=== PATIENT | male | born 1975 | race Caucasian/White ===

== ENCOUNTER → 2016-07-30 | Outpatient (CLI) | payer OTHER ==
[~2016-07-30] MED LIST: CEFAZOLIN 1GM VI1 G1 IV; CLEOCIN HCL150 MG PO; GLIPIZIDE 5 MG T5 MG PO; GLUCOPHAGE500 MG PO; HYDROCODON-ACE1 EAC7 PO; IBUPROFEN 400400 M2 PO
== END ==
LOC: HYPER 07:22
DX: T81.89XA Other complications of procedures, not elsewhere classified, initial encounter (principal); S91.302D Unspecified open wound, left foot, subsequent encounter; E11.621 Type 2 diabetes mellitus with foot ulcer; L97.521 Non-pressure chronic ulcer of other part of left foot limited to breakdown of skin; E11.69 Type 2 diabetes mellitus with other specified complication; M86.8X7 Other osteomyelitis, ankle and foot; A49.9 Bacterial infection, unspecified; Z48.89 Encounter for other specified surgical aftercare; Z79.84 Long term (current) use of oral hypoglycemic drugs; Z87.891 Personal history of nicotine dependence; Y83.8 Other surgical procedures as the cause of abnormal reaction of the patient, or of later complication, without mention of misadventure at the time of the procedure

== ENCOUNTER → 2016-08-07 | Outpatient (CLI) | payer OTHER | LOC: HYPER 07:12 | DX: T81.89XD Other complications of procedures, not elsewhere classified, subsequent encounter (principal); E11.621 Type 2 diabetes mellitus with foot ulcer; L97.521 Non-pressure chronic ulcer of other part of left foot limited to breakdown of skin; E11.69 Type 2 diabetes mellitus with other specified complication; M86.8X8 Other osteomyelitis, other site; A49.9 Bacterial infection, unspecified; Z79.84 Long term (current) use of oral hypoglycemic drugs; Z48.89 Encounter for other specified surgical aftercare; Z87.891 Personal history of nicotine dependence; Y83.8 Other surgical procedures as the cause of abnormal reaction of the patient, or of later complication, without mention of misadventure at the time of the procedure ==

== ENCOUNTER → 2016-08-12 | Outpatient (CLI) | payer OTHER | LOC: HYPER 07:12 | DX: T81.89XD Other complications of procedures, not elsewhere classified, subsequent encounter (principal); E11.621 Type 2 diabetes mellitus with foot ulcer; L97.524 Non-pressure chronic ulcer of other part of left foot with necrosis of bone; E11.69 Type 2 diabetes mellitus with other specified complication; M86.9 Osteomyelitis, unspecified; Z79.84 Long term (current) use of oral hypoglycemic drugs; Z87.891 Personal history of nicotine dependence; Y83.8 Other surgical procedures as the cause of abnormal reaction of the patient, or of later complication, without mention of misadventure at the time of the procedure ==

== ENCOUNTER → 2016-08-21 | Outpatient (CLI) | payer OTHER | LOC: HYPER 07:13 | DX: T81.89XA Other complications of procedures, not elsewhere classified, initial encounter (principal); E11.621 Type 2 diabetes mellitus with foot ulcer; L97.521 Non-pressure chronic ulcer of other part of left foot limited to breakdown of skin; E11.69 Type 2 diabetes mellitus with other specified complication; M86.8X7 Other osteomyelitis, ankle and foot; A49.9 Bacterial infection, unspecified; Z48.89 Encounter for other specified surgical aftercare; Z79.84 Long term (current) use of oral hypoglycemic drugs; Z87.891 Personal history of nicotine dependence; Y83.8 Other surgical procedures as the cause of abnormal reaction of the patient, or of later complication, without mention of misadventure at the time of the procedure ==

== ENCOUNTER → 2016-08-29 | Outpatient (CLI) | payer OTHER | LOC: HYPER 08:15 | DX: T81.89XD Other complications of procedures, not elsewhere classified, subsequent encounter (principal); E11.621 Type 2 diabetes mellitus with foot ulcer; L97.524 Non-pressure chronic ulcer of other part of left foot with necrosis of bone; E11.69 Type 2 diabetes mellitus with other specified complication; M86.8X8 Other osteomyelitis, other site; A49.9 Bacterial infection, unspecified; Z48.89 Encounter for other specified surgical aftercare; Z79.84 Long term (current) use of oral hypoglycemic drugs; Z87.891 Personal history of nicotine dependence; Y83.8 Other surgical procedures as the cause of abnormal reaction of the patient, or of later complication, without mention of misadventure at the time of the procedure ==

== ENCOUNTER 2016-09-03 01:13 | Emergency (ER) | payer OTHER ==
[~2016-09-03] VITALS: Ht 188 cm; Wt 97.5 kg
[2016-09-03 01:34] LABS: HEMATOCRIT 37.5 % (42.0-52.0); HEMOGLOBIN 12.8 gm/dL (14.0-18.0); MCH 28.8 pg (26.0-34.0); MCHC 34.1 g/dL (28.0-37.0); MCV 84.3 fL (80.0-100.0); PLATELET COUNT 174 thou/uL (150-400); RBC 4.44 mil/uL (4.50-6.00); RDW 14.3 % (10.5-14.5); WBC 13.1 thou/uL (4.0-11.0)
[2016-09-03 01:35] LABS: MANUAL DIFF YES
[2016-09-03 01:40] LABS: CALCIUM 9.5 mg/dL (8.5-10.1); CREATININE 1.3 mg/dL (0.7-1.3); POTASSIUM 4.3 mmol/L (3.5-5.1)
[2016-09-03 01:45] LABS: ALBUMIN 3.1 g/dL (3.4-5.0); TOTAL BILIRUBIN 0.7 mg/dL (<0.1-1.0); TOTAL PROTEIN 7.7 g/dL (6.4-8.2)
[2016-09-03] MEDS ORDERED: ONDANSETRON HCL4 M2 PO (02:16)
[2016-09-03 02:31] LABS: URINE BLOOD 2+ (Negative); URINE GLUCOSE-RANDOM* 2+ (Negative); URINE KETONES 1+ (Negative); URINE LEUKOCYTES-REFLEX NEGATIVE (Negative); URINE PROTEIN (DIPSTICK) 1+ (Negative); URINE SPECIFIC GRAVITY >= 1.030 (1.003-1.035)
[2016-09-03 02:40] LABS: ICTOTEST (BILI CONFIRMATORY) Negative (Negative); URINE BILIRUBIN NEGATIVE (Negative); URINE COLOR DARK YELLOW
[2016-09-03 02:58] LABS: ABSOLUTE NEUTROPHILS 10.1 thou/uL (1.4-8.2); LARGE PLATELETS RARE; TOTAL CELL COUNT 100
[2016-09-03 03:22] LABS: CRYSTALS None Seen /LPF (None Seen); HYALINE CASTS 0-3 Few /LPF (None Seen); SQUAMOUS 0-3 Few /LPF (0-3); URINE RBC 3-10 Few /HPF (0-2); URINE WBC-REFLEX 0-5 Rare /HPF (0-5)
== END 2016-09-03 02:51 | disposition home or self-care (01) ==
LOC: ER 01:13
PROVIDERS: Emergency Medicine
DX: E11.65 Type 2 diabetes mellitus with hyperglycemia (principal); R11.10 Vomiting, unspecified

== ENCOUNTER 2016-09-04 07:02 | Inpatient (IN) | payer OTHER ==
[~2016-09-04] VITALS: Ht 188 cm; Wt 99.8 kg
--- NOTE | ~2016-09-04 | HC ---
[facility] [place] [address] CONSULTATION Name: KALYAN URBINA Room #: 406-P [facility] IN M.R.#: [id number] Admission: 09/04/16 Attend Phys: Suleman Avelar MD Discharge: Date of : 79 Report #: [id number] THIS REPORT FOR: //name// CC: Suleman Cabezas DATE OF SERVICE: 09/05/2016 INFECTIOUS DISEASE CONSULTATION ATTENDING PHYSICIAN: Dr. Suleman Avelar. REASON FOR CONSULTATION: Deep infection involving the left foot. HISTORY OF PRESENT ILLNESS: Chart reviewed, the patient examined. This is a 40-year-old white male with diabetes mellitus who has had ongoing issues with distal lower extremity ulcers, some of which have been complicated by infection in June2016. Did undergo amputation of the left great toe as well as distal portion of the metatarsal. Operative cultures were known to have likely synergistic infection with group B strep as well Staph aureus. He did receive extended course of treatments, he believes 6 weeks. He has had ongoing issues with chronic wounds. He earlier this week developed some nausea with emesis and is feeling poorly, had some dyspnea, was evaluated at least on a couple of occasions. Ultimately was admitted with his evaluation following his wound care clinic visit. [place] he needed additional operative debridement, possible more extensive osteoectomies. He has had fevers. His blood sugars have been markedly elevated, currently he is not encephalopathic. He has been started on broad-spectrum therapy with vancomycin, piperacillin, tazobactam. He is scheduled to undergo surgery in the a.m. on 09/06/2016. ALLERGIES: None known. MEDICATIONS: Include insulin detemir, Lispro, morphine sulfate, vancomycin, Zosyn. PAST MEDICAL HISTORY: Diabetes mellitus, primary complication being the left great toe amputation. SOCIAL HISTORY: Nonsmoker, no ethanol. FAMILY HISTORY: Noncontributory. REVIEW OF SYSTEMS: As above. PHYSICAL EXAMINATION: [address] [address] CONSULTATION Name: KALYAN URBINA Floridalma Room #: 406-[facility] IN [facility]#: [id number] Admission: 09/04/16 Attend Phys: Suleman Avelar MD Discharge: Date of : 79 Report #: [id number] GENERAL: Appears fairly well nourished. He is alert, cooperative, in mild distress. VITAL SIGNS: Temperature max was 102.8, more recently 98.5; pulse 93, respirations 18, blood pressure 111/65. SKIN: Warm, dry, no rashes. HEENT: Otherwise, unremarkable. NECK: Supple. LUNGS: Generally clear to auscultation. HEART: Regular. I do not appreciate any murmur. ABDOMEN: Soft, nontender, nondistended. There is a compression dressing over his left foot. GENITOURINARY: Deferred. RECTAL: Deferred. LABORATORY DATA: Electrolytes: Sodium 131, potassium 4.3, chloride 96, bicarbonate is 24, anion gap of 11, BUN and creatinine 20 and 1.3. Glucose is 343. LFTs unremarkable. Albumin 3.1, total protein 7.7. Estimated GFR 62, lipase 100. CBC with white count of 13.1, H and H 12.8 and 37.5, platelets of 174. Urinalysis 1+ protein and 0-5 white cells. Lactic acid 1.0. Sed rate of 73. Prealbumin of 12.4. Plain film of the foot, diffuse swelling first metatarsal raising question of osteomyelitis. Hemoglobin A1c 6.4. CRP elevated at 184.83. MRI of the foot showed postoperative changes in amputation of the first toe and distal half of the first metatarsal, prominent soft tissue wound ulcer, plantar, medial, forefoot amputation site extending along the plantar mid foot below the base, acute appearing fracture of the second metatarsal with surrounding heterogenous marrow signal alterations, has question of pathological fracture related osteomyelitis. ASSESSMENT AND PLAN: Deep foot infection is yet to be defined. We will continue empiric broad spectrum therapy, he likely had a synergistic infection previous with Staph aureus group B strep. We will continue wound care as prescribed, offloading, and await findings at surgery. <ELECTRONICALLY SIGNED> By: Sammy Mireles MD 09/06/16 0512 [id number] Sammy Mireles MD /nt
--- NOTE | ~2016-09-04 | HC ---
[facility] [place] [address] CONSULTATION Name: KALYAN URBINA Room #: 406-P [facility] IN M.R.#: [id number] Admission: 09/04/16 Attend Phys: Suleman Avelar MD Discharge: Date of : 79 Report #: [id number] THIS REPORT FOR: //name// CC: Suleman Cabezas DATE OF SERVICE: 09/04/2016 PRIMARY CARE PHYSICIAN: Placido Morales M.D. CHIEF COMPLAINT: Diabetic foot ulcer. HISTORY OF PRESENT ILLNESS: This is a 40-year-old white male with a new onset of type 2 diabetes, who has underwent approximately 3 months ago a left first ray amputation, underwent total of 30 hyperbaric oxygen treatments, has been followed closely by myself, Dr. Andrew Armando and Dr. Andrew Chaudhary over the past several months. Last week actually I saw the patient's foot, wound was markedly contracted, totally granulated. There was no exposed bone. The patient states he felt very well. The patient states, however, this past week approximately 2 days ago, he started feeling fevers, chills, and generalized malaise, went in to the Emergency Department and was told he was dehydrated, given IV fluid and doses of Zofran. The patient states he went home, slept most of the next day, and was still having fevers and chills. The patient states he awoke this morning still feeling measurable and kept his appointment today, and shows up today with a cellulitic left foot with a severe foul smelly odor and a temperature of 102. The patient admission for IV antibiotics, further evaluation by Dr. Andrew Armando. MRI be performed to evaluate for an abscess, and possible further surgical intervention versus further amputation of his left foot. PAST MEDICAL HISTORY: Type 2 diabetes which was fairly controlled recently up until this past week, recent left first ray amputation secondary to diabetic foot ulcer and osteomyelitis. CURRENT MEDICATIONS: Ibuprofen, hydrocodone, metformin, glipizide, and Keflex. DRUG ALLERGIES: None. SOCIAL HISTORY: The patient does not smoke. FAMILY HISTORY: Not pertinent to current diagnosis. REVIEW OF SYSTEMS: CONSTITUTIONAL: The patient complains fevers and chills over the past 2-3 days with associated sweats. [address] [address] CONSULTATION Name: KALYAN URBINA Floridalma Room #: 406-P [facility] IN M.R.#: [id number] Admission: 09/04/16 Attend Phys: Suleman Avelar MD Discharge: Date of : 79 Report #: [id number] EYES: No complaints. ENT: No complaints. CARDIAC: The patient denies chest pain, palpitations. The patient has symptoms of slight edema in his left lower extremity. RESPIRATORY: The patient denies shortness breath, cough, wheezes. GASTROINTESTINAL: The patient denies nausea, vomiting, abdominal pain. GENITOURINARY: The patient denies urgency or frequency. MUSCULOSKELETAL: The patient has pain in his left foot. SKIN: Left foot is cellulitic. PHYSICAL EXAMINATION: VITAL SIGNS: Temperature 102, rest of the vitals are stable. GENERAL: This is alert and oriented x 3, ill appearing white male who is having chills at the time of my exam. HEENT: Normocephalic, atraumatic. Mucous membranes are dry. Pupils are round. Sclerae white. LUNGS: Clear. HEART: Regular. ABDOMEN: Soft, nontender. EXTREMITIES: The patient moves all extremities without difficulty. Evaluation of left lower extremity reveals a surgical wound which probes to bone. It probes in deeper to the mid foot approximately 4 cm with foul smelling brownish drainage. The foot itself is warm to touch and swollen, but appears stopped just at the mid foot, there does not appear to be any extension above into the ankle and lower extremity. The rest of the toes are mildly erythematous, but not necessarily cellulitic. The drainage itself is moderate at least. NEUROLOGIC: Cranial nerves 2-12 grossly intact. Motor and sensory grossly intact. WOUND CARE COURSE: I spoke with the patient and he is agreeable with admission. I spoke to the hospitalist, who admitted the patient. I have written basic wound care orders for Dakin's quarter strength moist gauze be packed within the wound twice daily with ABD and Kerlix. I have already consulted Dr. Andrew Armando and Dr. Andrew Chaudhary which I have notified both of them about the admission, who ordered an MRI of this patient to evaluate for underlying abscess and/or further extension of the osteomyelitis. We also ordered basic blood work including blood cultures x 2 and a wound culture. I will continue to follow the patient while he is in the hospital. IMPRESSION: 1. Diabetic foot ulcer, diabetic foot wound with cellulitis. 2. Status post left first ray amputation secondary to previous left great toe ulceration and underlying osteomyelitis. 3. Diabetes mellitus, type 2. 4. Generalized debility. [facility] [address] [place] [address] CONSULTATION Name: KALYAN URBINA Room #: 406-P [facility] IN M.R.#: [id number] Admission: 09/04/16 Attend Phys: Suleman Avelar MD Discharge: Date of : 79 Report #: [id number] ASSESSMENT AND PLAN: I described in length as above. The patient will be taken directly from my clinic to admissions where he will be direct admit and we will follow him for wound care. <ELECTRONICALLY SIGNED> By: Gerardo Cabezas MD 09/10/16 0825 [id number] Gerardo Cabezas MD /nt
--- NOTE | ~2016-09-04 | S ---
[facility] [place] [address] SURGICAL PATH RPT PROCEDURE Name: KALYAN URBINA Room #: 406-P [facility] IN M.R.#: [id number] Admission: 09/04/16 Date of : 79 Discharge: 09/10/16 Report #: [id number] Path Case #: [id number] PATHOLOGY REPORT COLLECTION DATE: 09/06/2016 RECEIVED DATE: 09/08/2016 SUBMITTING PHYS: Dr. Andrew Armando OTHER PHYS: Dr. Suleman Morales SPECIMEN(S) RECEIVED: A.Left forefoot - Lisfranc amputation * * * * * * * * * * * * FINAL DIAGNOSIS: Left forefoot, Lisfranc amputation: - Specimen received in multiple fragments, showing multiple foci of marked acute inflammation with abscess formation as well as acute osteomyelitis and bone destruction. - Surgical margins showing viable and unremarkable skin. (IUV:csd; d/t: 09/12/2016) PATHOLOGIST: Yuli Cabrera M.D. REPORT ELECTRONICALLY SIGNED BY: Yuli Cabrera M.D. DATE/TIME: 09/12/2016 16:33 * * * * * * * * * * * * GROSS PATHOLOGY: The specimen is received in formalin, labeled "Urbina, left forefoot-Lisfranc amputation", and consists of portions of a fragmented left forefoot amputated across a transmetatarsal location with attached second, third, fourth and fifth toes. The great toe is absent. This portion of the foot measures 13 10 4.5 cm. Skin overlying the foot is pale wei with a concave ulcerated area involving the medial aspect of the foot measuring about 2.5 1.5 cm located 0.5 cm from the dorsal skin resection margin and about 0.5 cm from the plantar resection margin. The ulcer bed is cavitated and extends into the underlying soft tissue and a portion of first metatarsal bone is exposed within the ulcer bed. The deep soft tissues in this region have hemorrhagic areas adjacent to the attached fragment of first metatarsal bone. The soft tissue and bone adjacent to the plantar surface are marked with black dye and the dorsal skin margin with blue dye. Some hemorrhagic areas extend to soft tissue margins on the dorsal aspect of this portion of the foot. Two other detached fragments of skin with underlying subcutis [address] [address] SURGICAL PATH RPT PROCEDURE Name: KALYAN URBINA Floridalma Room #: 406-P [facility] IN M.R.#: [id number] Admission: 09/04/16 Date of : 79 Discharge: 09/10/16 Report #: [id number] Path Case #: [id number] together in aggregate measure 8.5 5 1.5 cm. Skin surfaces are without significant abnormalities and subcutaneous tissue of the smaller skin segment has some scattered hemorrhagic areas. Several other detached disrupted portions of bone including articular surfaces together in aggregate measure 5.5 4 2 cm. [employer] sections are submitted following decalcification of bone as follows: Perpendicular section dorsal skin resection margin and adjacent ulcer border A1, plantar skin resection margin and adjacent ulcer A2, hemorrhagic area involving plantar soft tissue adjacent to ulcerated region A3, fragment of metatarsal bone exposed within ulcer bed A4, en face sections of other portions of dorsal and plantar skin and soft tissue margins A5 and A 6 respectively and separate detached skin fragment with hemorrhagic areas A7. (CWM; 09/11/2016) CLINICAL HISTORY: Pre-op diagnosis: Diabetes, osteomyelitis with abscess left foot Postop diagnosis: Same INITIAL CPT CODE(S): A; 24079, 75311 Professional services performed by [facility] at [facility] [address], [place] [address] Technical services performed by [facility] at [address] [place] [address], [facility] [address] [address]. [facility] [address] [place] [address] PHONE: [phone] DIRECTOR: Federico Morales M.D. * * * END OF REPORT * * *
[~2016-09-04 07:02] MED LIST changes: +ONDANSETRON HCL4 M2 PO
[2016-09-04 19:00] VITALS: BP 121/64
[2016-09-04 20:07] LABS: HEMATOCRIT 30.4 % (42.0-52.0); MCH 29.2 pg (26.0-34.0); MCHC 34.5 g/dL (28.0-37.0); MCV 84.5 fL (80.0-100.0); PLATELET COUNT 159 thou/uL (150-400); RDW 14.3 % (10.5-14.5); WBC 13.9 thou/uL (4.0-11.0)
[2016-09-04 20:26] LABS: HEMOGLOBIN 10.5 gm/dL (14.0-18.0)
[2016-09-04 20:27] LABS: MANUAL DIFF YES
[2016-09-04 20:30] LABS: ALBUMIN 2.8 g/dL (3.4-5.0); CALCIUM 8.5 mg/dL (8.5-10.1); CREATININE 1.3 mg/dL (0.7-1.3); POTASSIUM 4.2 mmol/L (3.5-5.1); TOTAL PROTEIN 6.6 g/dL (6.4-8.2)
[2016-09-04 20:43] LABS: PREALBUMIN 12.4 mg/dL (18.0-35.7)
[2016-09-04 21:09] LABS: ABSOLUTE NEUTROPHILS 9.9 thou/uL (1.4-8.2); TOTAL CELL COUNT 100
[2016-09-05] VITALS: BP 106/65
[2016-09-05 04:08] LABS: GLYCOHEMOGLOBIN (HGB A1C) 6.4 % (4.8-5.6)
[2016-09-05 05:25] VITALS: BP 128/75
[2016-09-05 07:30] VITALS: BP 111/65
[2016-09-05 15:52] VITALS: BP 107/60
[2016-09-05 16:34] VITALS: BP 107/60
[2016-09-05 20:00] VITALS: BP 122/78
[2016-09-06 04:00] VITALS: BP 126/77
[2016-09-06 08:41] VITALS: BP 118/75
[2016-09-06 12:45] VITALS: BP 133/90
[2016-09-06 13:15] VITALS: BP 135/88
[2016-09-06 13:45] VITALS: BP 130/78
[2016-09-06 20:18] LABS: URINE BILIRUBIN NEGATIVE (Negative); URINE BLOOD NEGATIVE (Negative); URINE COLOR YELLOW; URINE GLUCOSE-RANDOM* TRACE (Negative); URINE KETONES TRACE (Negative); URINE LEUKOCYTES-REFLEX NEGATIVE (Negative); URINE PROTEIN (DIPSTICK) 1+ (Negative); URINE SPECIFIC GRAVITY >= 1.030 (1.003-1.035)
[2016-09-06 20:25] LABS: CASTS None Seen /LPF (None Seen); CRYSTALS None Seen /LPF (None Seen); SQUAMOUS None Seen /LPF (0-3); URINE RBC 0-2 Rare /HPF (0-2); URINE WBC-REFLEX 0-5 Rare /HPF (0-5)
[2016-09-06 20:33] VITALS: BP 110/66
[2016-09-07 03:50] VITALS: BP 114/60
[2016-09-07 08:00] VITALS: BP 121/77
[2016-09-07 11:19] LABS: HEMATOCRIT 26.6 % (42.0-52.0); HEMOGLOBIN 9.1 gm/dL (14.0-18.0); MCHC 34.1 g/dL (28.0-37.0); MCV 85.1 fL (80.0-100.0); RBC 3.12 mil/uL (4.50-6.00); RDW 14.5 % (10.5-14.5); WBC 11.4 thou/uL (4.0-11.0)
[2016-09-07 11:28] LABS: CALCIUM 7.8 mg/dL (8.5-10.1); POTASSIUM 4.2 mmol/L (3.5-5.1)
[2016-09-07 16:09] VITALS: BP 108/72
[2016-09-07 16:14] VITALS: BP 108/72
[2016-09-07 20:00] VITALS: BP 110/78
[2016-09-08 04:00] VITALS: BP 116/76
[2016-09-08 07:19] VITALS: BP 117/74
[2016-09-08] MEDS ORDERED: LANTUS100 UNIT/M SUBQ (15:12)
[2016-09-08] MEDS ORDERED: HUMALOG100 UNIT/1 SUBQ (15:14)
[2016-09-08] MEDS ORDERED: VANCO 1 GR1 GM/250 M IVPB (15:34)
[2016-09-08 17:22] VITALS: BP 127/73
[2016-09-08 19:59] VITALS: BP 110/70
[2016-09-09 04:37] VITALS: BP 111/76
[2016-09-09 07:50] VITALS: BP 116/71
[2016-09-09 15:35] VITALS: BP 114/68
[2016-09-09 19:10] VITALS: BP 140/84
[2016-09-09 23:45] VITALS: BP 114/63
[2016-09-10 04:34] VITALS: BP 128/76
[2016-09-10 08:00] VITALS: BP 123/84
[2016-09-10] MEDS ORDERED: FLAGYL500 MG IV (11:37)
[2016-09-10] MEDS ORDERED: FLAGYL500 MG IVPB (11:38)
[2016-09-10] MEDS ORDERED: METRONIDAZOLE500 M5 IV (11:53)
== END 2016-09-10 13:42 | DRG 854 ==
LOC: HYPER → 4N 17:06
PROVIDERS: Emergency Medicine; Internal Medicine
PROC: 0Y6N0ZB Detachment at Left Foot, Partial 2nd Ray, Open Approach (ICD-10-PCS; principal; 2016-09-06)
PROC: 0Y6N0ZD Detachment at Left Foot, Partial 4th Ray, Open Approach (ICD-10-PCS; principal; 2016-09-06)
PROC: 0Y6N0ZC Detachment at Left Foot, Partial 3rd Ray, Open Approach (ICD-10-PCS; principal; 2016-09-06)
PROC: 0Y6N0Z9 Detachment at Left Foot, Partial 1st Ray, Open Approach (ICD-10-PCS; principal; 2016-09-06)
PROC: 02HV33Z Insertion of Infusion Device into Superior Vena Cava, Percutaneous Approach (ICD-10-PCS; 2016-09-08)
PROC: B548ZZA Ultrasonography of Superior Vena Cava, Guidance (ICD-10-PCS; 2016-09-08)
DX: A41.9 Sepsis, unspecified organism (principal); E44.0 Moderate protein-calorie malnutrition; L03.116 Cellulitis of left lower limb; M86.172 Other acute osteomyelitis, left ankle and foot; E87.1 Hypo-osmolality and hyponatremia; S92.322B Displaced fracture of second metatarsal bone, left foot, initial encounter for open fracture; L02.612 Cutaneous abscess of left foot; M87.9 Osteonecrosis, unspecified; N17.9 Acute kidney failure, unspecified; E11.621 Type 2 diabetes mellitus with foot ulcer; Z68.28 Body mass index [BMI] 28.0-28.9, adult; L97.524 Non-pressure chronic ulcer of other part of left foot with necrosis of bone; E11.69 Type 2 diabetes mellitus with other specified complication; M14.672 Charcot's joint, left ankle and foot; E11.65 Type 2 diabetes mellitus with hyperglycemia; Z87.891 Personal history of nicotine dependence; Z79.899 Other long term (current) drug therapy
CPT/HCPCS: 10790; 27000; 50101; 50386; 50951; 51741; 53078; 56524; 56525; 57091; 62110; 62900; 70005

== ENCOUNTER → 2017-02-27 | Outpatient (CLI) | payer OTHER ==
[~2017-02-27] MED LIST changes: +FLAGYL500 MG IV; +FLAGYL500 MG IVPB; +HUMALOG100 UNIT/1 SUBQ; +LANTUS100 UNIT/M SUBQ; +METRONIDAZOLE500 M5 IV; +VANCO 1 GR1 GM/250 M IVPB
== END ==
LOC: HYPER 08:22
DX: E11.621 Type 2 diabetes mellitus with foot ulcer (principal); L97.521 Non-pressure chronic ulcer of other part of left foot limited to breakdown of skin; Z79.84 Long term (current) use of oral hypoglycemic drugs; Z87.891 Personal history of nicotine dependence

== ENCOUNTER → 2017-03-16 | Outpatient (CLI) | payer OTHER | LOC: HYPER 07:38 | DX: E11.621 Type 2 diabetes mellitus with foot ulcer (principal); L97.521 Non-pressure chronic ulcer of other part of left foot limited to breakdown of skin; Z87.891 Personal history of nicotine dependence ==

== ENCOUNTER → 2017-03-30 | Outpatient (CLI) | payer OTHER | LOC: HYPER 07:17 | DX: E11.621 Type 2 diabetes mellitus with foot ulcer (principal); L97.521 Non-pressure chronic ulcer of other part of left foot limited to breakdown of skin; Z79.84 Long term (current) use of oral hypoglycemic drugs; Z89.432 Acquired absence of left foot; Z87.891 Personal history of nicotine dependence ==

== ENCOUNTER → 2017-05-05 | Outpatient (CLI) | payer OTHER | LOC: HYPER 07:00 | DX: E11.621 Type 2 diabetes mellitus with foot ulcer (principal); L97.521 Non-pressure chronic ulcer of other part of left foot limited to breakdown of skin; Z89.422 Acquired absence of other left toe(s); Z87.891 Personal history of nicotine dependence; Z79.84 Long term (current) use of oral hypoglycemic drugs ==

== ENCOUNTER → 2017-05-18 | Outpatient (CLI) | payer OTHER | LOC: HYPER 07:08 | DX: E11.621 Type 2 diabetes mellitus with foot ulcer (principal); L97.522 Non-pressure chronic ulcer of other part of left foot with fat layer exposed; Z79.84 Long term (current) use of oral hypoglycemic drugs; Z89.432 Acquired absence of left foot; Z87.891 Personal history of nicotine dependence ==

== ENCOUNTER → 2017-06-01 | Outpatient (CLI) | payer OTHER | LOC: HYPER 06:48 | DX: E11.621 Type 2 diabetes mellitus with foot ulcer (principal); L97.522 Non-pressure chronic ulcer of other part of left foot with fat layer exposed; Z79.84 Long term (current) use of oral hypoglycemic drugs; Z89.432 Acquired absence of left foot; Z87.891 Personal history of nicotine dependence ==

== ENCOUNTER → 2017-06-30 | Outpatient (CLI) | payer OTHER | LOC: HYPER 07:08 | DX: E11.621 Type 2 diabetes mellitus with foot ulcer (principal); L97.421 Non-pressure chronic ulcer of left heel and midfoot limited to breakdown of skin; L97.522 Non-pressure chronic ulcer of other part of left foot with fat layer exposed; L89.623 Pressure ulcer of left heel, stage 3; Z79.84 Long term (current) use of oral hypoglycemic drugs; Z89.432 Acquired absence of left foot; Z87.891 Personal history of nicotine dependence ==

== ENCOUNTER → 2017-07-28 | Outpatient (CLI) | payer OTHER | LOC: HYPER 07:05 | DX: E11.621 Type 2 diabetes mellitus with foot ulcer (principal); L97.521 Non-pressure chronic ulcer of other part of left foot limited to breakdown of skin; L97.421 Non-pressure chronic ulcer of left heel and midfoot limited to breakdown of skin; L89.623 Pressure ulcer of left heel, stage 3; E11.622 Type 2 diabetes mellitus with other skin ulcer; L97.522 Non-pressure chronic ulcer of other part of left foot with fat layer exposed; Z79.84 Long term (current) use of oral hypoglycemic drugs; Z87.891 Personal history of nicotine dependence ==

== ENCOUNTER → 2017-08-03 | Outpatient (CLI) | payer OTHER | LOC: HYPER 06:56 | DX: E11.621 Type 2 diabetes mellitus with foot ulcer (principal); L97.522 Non-pressure chronic ulcer of other part of left foot with fat layer exposed; L97.422 Non-pressure chronic ulcer of left heel and midfoot with fat layer exposed; L89.623 Pressure ulcer of left heel, stage 3; Z79.84 Long term (current) use of oral hypoglycemic drugs; Z89.422 Acquired absence of other left toe(s); Z87.891 Personal history of nicotine dependence ==

== ENCOUNTER → 2017-08-11 | Outpatient (CLI) | payer OTHER | LOC: HYPER 06:55 | DX: E11.621 Type 2 diabetes mellitus with foot ulcer (principal); L97.522 Non-pressure chronic ulcer of other part of left foot with fat layer exposed; L89.623 Pressure ulcer of left heel, stage 3; L97.421 Non-pressure chronic ulcer of left heel and midfoot limited to breakdown of skin; Z79.84 Long term (current) use of oral hypoglycemic drugs; Z87.891 Personal history of nicotine dependence ==

== ENCOUNTER → 2017-08-31 | Outpatient (CLI) | payer OTHER | LOC: HYPER 06:51 | DX: E11.621 Type 2 diabetes mellitus with foot ulcer (principal); L97.522 Non-pressure chronic ulcer of other part of left foot with fat layer exposed; L89.613 Pressure ulcer of right heel, stage 3; L89.620 Pressure ulcer of left heel, unstageable; L97.421 Non-pressure chronic ulcer of left heel and midfoot limited to breakdown of skin; L84 Corns and callosities; Z87.891 Personal history of nicotine dependence; Z79.84 Long term (current) use of oral hypoglycemic drugs ==

== ENCOUNTER → 2017-09-14 | Outpatient (CLI) | payer OTHER | LOC: HYPER 06:45 | DX: E11.621 Type 2 diabetes mellitus with foot ulcer (principal); L97.522 Non-pressure chronic ulcer of other part of left foot with fat layer exposed; L89.623 Pressure ulcer of left heel, stage 3; L97.421 Non-pressure chronic ulcer of left heel and midfoot limited to breakdown of skin; L84 Corns and callosities; Z87.891 Personal history of nicotine dependence; Z79.84 Long term (current) use of oral hypoglycemic drugs ==

== ENCOUNTER → 2017-10-16 | Outpatient (CLI) | payer OTHER | LOC: HYPER 08:03 | DX: E11.621 Type 2 diabetes mellitus with foot ulcer (principal); L97.522 Non-pressure chronic ulcer of other part of left foot with fat layer exposed; L89.623 Pressure ulcer of left heel, stage 3; L97.421 Non-pressure chronic ulcer of left heel and midfoot limited to breakdown of skin; L84 Corns and callosities; Z87.891 Personal history of nicotine dependence; Z89.412 Acquired absence of left great toe; Z89.422 Acquired absence of other left toe(s); Z79.84 Long term (current) use of oral hypoglycemic drugs ==

== ENCOUNTER → 2017-11-03 | Outpatient (CLI) | payer OTHER | LOC: HYPER 06:52 | DX: E11.621 Type 2 diabetes mellitus with foot ulcer (principal); L97.522 Non-pressure chronic ulcer of other part of left foot with fat layer exposed; L89.623 Pressure ulcer of left heel, stage 3; L97.421 Non-pressure chronic ulcer of left heel and midfoot limited to breakdown of skin; L84 Corns and callosities; Z89.422 Acquired absence of other left toe(s); Z79.84 Long term (current) use of oral hypoglycemic drugs; Z87.891 Personal history of nicotine dependence ==

== ENCOUNTER → 2017-11-16 | Outpatient (CLI) | payer OTHER | LOC: HYPER 07:02 | DX: E11.621 Type 2 diabetes mellitus with foot ulcer (principal); L97.522 Non-pressure chronic ulcer of other part of left foot with fat layer exposed; L89.623 Pressure ulcer of left heel, stage 3; L97.421 Non-pressure chronic ulcer of left heel and midfoot limited to breakdown of skin; Z79.84 Long term (current) use of oral hypoglycemic drugs; Z89.422 Acquired absence of other left toe(s); Z89.412 Acquired absence of left great toe; Z87.891 Personal history of nicotine dependence ==

== ENCOUNTER → 2018-02-01 | Outpatient (CLI) | payer OTHER | LOC: HYPER 01-25 07:13 | DX: E11.621 Type 2 diabetes mellitus with foot ulcer (principal); L97.522 Non-pressure chronic ulcer of other part of left foot with fat layer exposed; L89.623 Pressure ulcer of left heel, stage 3; S90.821D Blister (nonthermal), right foot, subsequent encounter; L84 Corns and callosities; Z89.412 Acquired absence of left great toe; Z89.422 Acquired absence of other left toe(s); X58.XXXD Exposure to other specified factors, subsequent encounter; Z87.891 Personal history of nicotine dependence ==

== ENCOUNTER → 2018-02-19 | Outpatient (CLI) | payer OTHER | LOC: HYPER 07:55 | DX: E11.621 Type 2 diabetes mellitus with foot ulcer (principal); L97.522 Non-pressure chronic ulcer of other part of left foot with fat layer exposed; S90.821D Blister (nonthermal), right foot, subsequent encounter; Z89.412 Acquired absence of left great toe; Z89.422 Acquired absence of other left toe(s); Z79.84 Long term (current) use of oral hypoglycemic drugs; Z87.891 Personal history of nicotine dependence; X58.XXXD Exposure to other specified factors, subsequent encounter ==

== ENCOUNTER → 2018-03-22 | Outpatient (CLI) | payer OTHER | LOC: HYPER 07:11 | DX: E11.621 Type 2 diabetes mellitus with foot ulcer (principal); L97.522 Non-pressure chronic ulcer of other part of left foot with fat layer exposed; L84 Corns and callosities; Z89.412 Acquired absence of left great toe; Z89.422 Acquired absence of other left toe(s); Z79.84 Long term (current) use of oral hypoglycemic drugs; Z87.891 Personal history of nicotine dependence ==

== ENCOUNTER → 2018-04-13 | Outpatient (CLI) | payer OTHER | LOC: MRI 04-02 16:16 → RAD 10:00 → MRI 04-16 16:10 | DX: E11.621 Type 2 diabetes mellitus with foot ulcer (principal); L97.522 Non-pressure chronic ulcer of other part of left foot with fat layer exposed ==

== ENCOUNTER → 2018-04-13 | Outpatient (CLI) | payer OTHER | LOC: HYPER 06:51 | DX: E11.621 Type 2 diabetes mellitus with foot ulcer (principal); L97.522 Non-pressure chronic ulcer of other part of left foot with fat layer exposed; L84 Corns and callosities; Z89.412 Acquired absence of left great toe; Z89.422 Acquired absence of other left toe(s); Z79.84 Long term (current) use of oral hypoglycemic drugs; Z87.891 Personal history of nicotine dependence ==

== ENCOUNTER → 2018-05-06 | Outpatient (CLI) | payer OTHER | LOC: HYPER 05:29 | DX: E11.621 Type 2 diabetes mellitus with foot ulcer (principal); L97.522 Non-pressure chronic ulcer of other part of left foot with fat layer exposed; L84 Corns and callosities; Z89.412 Acquired absence of left great toe; Z89.422 Acquired absence of other left toe(s); Z79.84 Long term (current) use of oral hypoglycemic drugs; Z87.891 Personal history of nicotine dependence ==

== ENCOUNTER → 2018-05-14 | Outpatient (CLI) | payer OTHER | LOC: MRI 09:24 | DX: E11.621 Type 2 diabetes mellitus with foot ulcer (principal); L97.522 Non-pressure chronic ulcer of other part of left foot with fat layer exposed; R60.0 Localized edema ==

== ENCOUNTER → 2018-05-20 | Outpatient (CLI) | payer OTHER | LOC: HYPER 07:09 | DX: E11.621 Type 2 diabetes mellitus with foot ulcer (principal); L97.522 Non-pressure chronic ulcer of other part of left foot with fat layer exposed; L84 Corns and callosities; Z89.412 Acquired absence of left great toe; Z89.422 Acquired absence of other left toe(s); Z79.84 Long term (current) use of oral hypoglycemic drugs; Z87.891 Personal history of nicotine dependence ==

== ENCOUNTER → 2018-06-17 | Outpatient (CLI) | payer OTHER | LOC: HYPER 06-16 14:40 | DX: E11.621 Type 2 diabetes mellitus with foot ulcer (principal); L97.522 Non-pressure chronic ulcer of other part of left foot with fat layer exposed; L84 Corns and callosities; F17.200 Nicotine dependence, unspecified, uncomplicated; Z89.412 Acquired absence of left great toe; Z89.422 Acquired absence of other left toe(s); Z79.84 Long term (current) use of oral hypoglycemic drugs ==

== ENCOUNTER → 2018-07-15 | Outpatient (CLI) | payer OTHER | LOC: HYPER 06:56 | DX: E11.621 Type 2 diabetes mellitus with foot ulcer (principal); L97.522 Non-pressure chronic ulcer of other part of left foot with fat layer exposed; L84 Corns and callosities; Z89.412 Acquired absence of left great toe; Z89.422 Acquired absence of other left toe(s); Z79.84 Long term (current) use of oral hypoglycemic drugs; Z87.891 Personal history of nicotine dependence ==

== ENCOUNTER → 2018-07-29 | Outpatient (CLI) | payer OTHER | LOC: HYPER 06:55 | DX: E11.621 Type 2 diabetes mellitus with foot ulcer (principal); L97.522 Non-pressure chronic ulcer of other part of left foot with fat layer exposed; L84 Corns and callosities; Z89.412 Acquired absence of left great toe; Z89.422 Acquired absence of other left toe(s); Z79.84 Long term (current) use of oral hypoglycemic drugs; Z87.891 Personal history of nicotine dependence ==

== ENCOUNTER → 2018-08-12 | Outpatient (CLI) | payer OTHER | LOC: HYPER 06:39 | DX: E11.621 Type 2 diabetes mellitus with foot ulcer (principal); L97.522 Non-pressure chronic ulcer of other part of left foot with fat layer exposed; L84 Corns and callosities; Z89.522 Acquired absence of left knee; Z89.422 Acquired absence of other left toe(s); Z79.84 Long term (current) use of oral hypoglycemic drugs; Z87.891 Personal history of nicotine dependence ==

== ENCOUNTER → 2018-08-19 | Outpatient (CLI) | payer OTHER | LOC: HYPER 06:53 | DX: E11.621 Type 2 diabetes mellitus with foot ulcer (principal); L97.522 Non-pressure chronic ulcer of other part of left foot with fat layer exposed; L84 Corns and callosities; Z89.412 Acquired absence of left great toe; Z89.422 Acquired absence of other left toe(s); Z79.84 Long term (current) use of oral hypoglycemic drugs; Z87.891 Personal history of nicotine dependence ==

== ENCOUNTER → 2018-08-26 | Outpatient (CLI) | payer OTHER | LOC: HYPER 07:09 | DX: E11.621 Type 2 diabetes mellitus with foot ulcer (principal); L97.522 Non-pressure chronic ulcer of other part of left foot with fat layer exposed; L84 Corns and callosities; Z89.412 Acquired absence of left great toe; Z89.422 Acquired absence of other left toe(s); Z79.84 Long term (current) use of oral hypoglycemic drugs; Z87.891 Personal history of nicotine dependence ==

== ENCOUNTER → 2018-09-09 | Outpatient (CLI) | payer OTHER | LOC: HYPER 06:43 | DX: E11.621 Type 2 diabetes mellitus with foot ulcer (principal); L97.522 Non-pressure chronic ulcer of other part of left foot with fat layer exposed; L84 Corns and callosities; Z89.412 Acquired absence of left great toe; Z89.422 Acquired absence of other left toe(s); Z79.84 Long term (current) use of oral hypoglycemic drugs; Z87.891 Personal history of nicotine dependence ==

== ENCOUNTER → 2018-09-23 | Outpatient (CLI) | payer OTHER | LOC: HYPER 06:47 | DX: E11.621 Type 2 diabetes mellitus with foot ulcer (principal); L97.522 Non-pressure chronic ulcer of other part of left foot with fat layer exposed; L84 Corns and callosities; Z89.412 Acquired absence of left great toe; Z89.422 Acquired absence of other left toe(s); Z79.84 Long term (current) use of oral hypoglycemic drugs; Z87.891 Personal history of nicotine dependence ==